=== PATIENT | female | born 1985 | race Caucasian/White ===

== ENCOUNTER 2018-03-25 10:18 | Emergency (ER) | payer BC, OTHER ==
[2018-03-25 10:53] VITALS: BP 145/90
[2018-03-25] MEDS ORDERED: Tetan/Diph/Pertus SYR(Tdap)* 0.5 ML SYR(BOOSTRIX) use SYR IM ONE (10:55)
--- NOTE | 2018-03-25 11:12 | UC ---
Minor Trauma HPI - HPI Summary HPI Summary: 32-year-old female presents for work-related injury to her right eye. States she works at the [employer] in one of the clients became angry and saw her from behind scratching her face with his fingernails near the right eye. Denies eye injury, pain, redness, drainage, visual disturbances, or photophobia. Tetanus status unknown. - History of Current Complaint Chief Complaint: [place] Stated Complaint: WC-ASSAULT Time Seen by Provider: 03/25/18 10:53 Hx Obtained From: Patient Hx Last Menstrual Period: unknown Pain Intensity: 4 Body - Head: 1 - 3 superficial abrasions - Allergies/Home Medications Allergies/Adverse Reactions: Allergies Allergy/AdvReac Type Severity Reaction Status Date / Time No Known Allergies Allergy Verified 03/25/18 10:45 PMH/Surg Hx/FS Hx/Imm Hx Previously Healthy: Yes - Denies significant PMH - Surgical History Surgical History: None - Family History Known Family History: Positive: Non-Contributory - Social History Occupation: Employed Full-time Lives: With Family Alcohol Use: None Substance Use Type: None Smoking Status (MU): Light Every Day Tobacco Smoker Type: Cigarettes Amount Used/How Often: 5-6 cigarettes daily - Immunization History Most Recent Influenza Vaccination: 01/2015 Most Recent Tetanus Shot: unknown Review of Systems All Other Systems Reviewed And Are Negative: Yes Skin: Positive: Other - See HPI Eyes: Negative: Blurred Vision, Diplopia, Drainage, Eye Redness, Photophobia Is Patient Immunocompromised?: No Physical Exam - Summary Physical Exam Summary: GENERAL APPEARANCE: Well developed, obese, alert and cooperative, and appears to be in no acute distress. HEAD: Atraumatic. normocephalic. EYES: PERRL, EOM intact. Vision is grossly intact. Conjuctiva clear. No drainage. NECK: Neck supple, non-tender without lymphadenopathy. CARDIAC: Normal S1 and S2. No S3, S4 or murmurs. Rhythm is regular. There is no peripheral edema, cyanosis or pallor. Extremities are warm and well perfused. Capillary refill is less than 2 seconds. LUNGS: Clear to auscultation and percussion without rales, rhonchi, wheezing or diminished breath sounds. ABDOMEN: Positive bowel sounds. Soft, nondistended, nontender. No guarding or rebound. No masses or hepatosplenomegally. MUSKULOSKELETAL: ROM intact to all extremities. No joint erythema or tenderness. Normal muscular development. Normal gait. EXTREMITIES: No significant deformity or joint abnormality. No edema. Peripheral pulses intact. NEUROLOGICAL: Strength and sensation symmetric and intact throughout. SKIN: General skin exam normal. 3 small linear abrasions, 1 superficial abrasions to the right medial upper eyelid and 2 to the medial aspect of her lower right eyelid are noted. Triage Information Reviewed: Yes Vital Signs: Initial Vital Signs Temp 99.1 F 03/25/18 10:46 Pulse 82 03/25/18 10:46 Resp 16 03/25/18 10:46 BP 145/90 03/25/18 10:46 Pulse Ox 98 03/25/18 10:46 Vital Signs Reviewed: Yes Minor Trauma Course/Dx - Course Course Of Treatment: 32-year-old female presents for work-related injury to her right eye. States she works at the [employer] in one of the clients became angry and saw her from behind scratching her face with his fingernails near the right eye. Denies eye injury, pain, redness, drainage, visual disturbances, or photophobia. Tetanus status unknown. Exam reveals 3 small linear abrasions, 1 superficial abrasions to the right medial upper eyelid and 2 to the medial aspect of her lower right eyelid. No other injuries noted. Wounds were cleansed and abtibiotic ointment applied. Tdap was given. She is to follow up with occupational medicine if needed. Wound care instructions and warning symptoms were reviewed. Verbalizes understanding and agrees with POC. - Differential Dx/Diagnosis Differential Diagnosis/HQI/PQRI: Abrasion(s), Contusion(s), Laceration(s) Provider Diagnosis: Superficial abrasion of eye region structure Discharge - Sign-Out/Discharge Documenting (check all that apply): Patient Departure All imaging exams completed and their final reports reviewed: No Studies - Discharge Plan Condition: Stable Disposition: HOME Patient Education Materials: Abrasion (ED) Forms: *Work Release Referrals: Samantha Avelar PA [Primary Care Provider] - London Foster MD [Medical Doctor] - If Needed Additional Instructions: You have some superficial abrasions near the right eye that should heal well without any repair. Gently clean the wounds at least twice a day with a mild soap and water. Apply a small amount of an antibiotic ointment such as Bacitracin twice a day to keep the wounds moist and help reduce the chance of scarring. Your tetanus was updated today. Please let your primary care provider know so they can update your records. Your blood pressure was elevated in the clinic today. It is recommended that you follow up with your primary care provider within 4 weeks to have this rechecked. Follow up with Dr. Foster, occupational medicine, if needed. Watch for signs of infection including redness that spreads, swelling, pus draining from the wound, or fever greater than 100.5 F. Seek immediate medical attention if any of these should occur. Seek immediate medical attention in the emergency room if you have severe eye pain, visual disturbance, or loss of vision. - Billing Disposition and Condition Condition: STABLE Disposition: Home
== END 2018-03-25 11:30 | disposition home or self-care (01) ==
LOC: UCCORT 10:18
DX: S00.211A Abrasion of right eyelid and periocular area, initial encounter (principal); Y08.89XA Assault by other specified means, initial encounter; Y92.89 Other specified places as the place of occurrence of the external cause; Y99.0 Civilian activity done for income or pay; F17.210 Nicotine dependence, cigarettes, uncomplicated
CPT/HCPCS: 90471; 90715; 99212; G0463